=== PATIENT | male | born 1995 | race Caucasian/White ===

== ENCOUNTER 2017-01-17 19:59 | Emergency (ER) | payer BC ==
[~2017-01-17] VITALS: Ht 177.8 cm; Wt 79.1 kg
[2017-01-17 21:16] VITALS: TEMP 36.8; Ht 177.8 cm; Wt 79.1 kg
--- NOTE | 2017-01-17 22:36 | DIAGNOSTIC IMAGING REPORT ---
L ANKLE MIN 3 VIEWS ROUTINE CLINICAL HISTORY: 21 years-old Male presenting with ankle pain, rolled ankle yesterday. TECHNIQUE: Frontal, mortise, and lateral views of the left ankle were obtained. COMPARISON: None. FINDINGS: Ankle mortise intact. No acute fracture or malalignment. Severe soft tissue swelling over the lateral malleolus and to a lesser degree inferior to the medial malleolus. No degenerative change. No radiopaque foreign body. IMPRESSION: No acute osseous injury of the left ankle. Extensive soft tissue swelling most pronounced over the lateral malleolus. Electronically signed by: Fei Lanza M.D. 01/17/2017 10:35 PM Dictated Date/Time: 01/17/2017 10:33 PM
[2017-01-17 23:40] VITALS: BP 150/65; PULSE 70; O2SAT 98
--- NOTE | 2017-01-17 23:50 | EMERGENCY ROOM VISIT NOTE ---
History First contact with patient: 22:05 Chief Complaint: ANKLE PAIN Stated Complaint: SWOLLEN AND BRUISED LT ANKLE History of Present Illness The patient is a 21 year old male who presents to the Emergency Room with complaints of left ankle pain. The patient reports that he twisted his ankle while playing soccer. A medic was on seen and examined the ankle. The patient wanted to see how the ankle did before being evaluated. The patient reports worsening swelling, bruising and pain with weightbearing. He rates his discomfort an 8 out of 10. The patient denies any prior history of left ankle injuries. He also denies any paresthesias or numbness of the left foot or toes. Review of Systems 10 system review was performed and was negative except for pertinent positives and negatives as indicated in history of present illness Past Medical/Surgical History Medical Problems: (1) No significant past medical history Surgical Problems: (1) No history of previous surgery Family History Unremarkable Social History Smoking Status: Never Smoker Alcohol Use: occasionally Marital Status: single Occupation Status: [employer] student Current/Historical Medications No Active Prescriptions or Reported Meds Physical Exam Vital Signs Date Time Temp Pulse Resp B/P (MAP) Pulse Ox O2 Delivery O2 Flow Rate FiO2 01/17/17 23:40 70 18 150/65 98 01/17/17 21:16 36.8 80 20 116/70 100 Room Air Physical Exam CONSTITUTIONAL: Healthy and well nourished. Alert and oriented X 3 with positive affect. HEENT: Normocephalic, atraumatic. Pupils equal, round and reactive. NECK: Full active range of motion without discomfort. MUSCULOSKELETAL: Examination of the left ankle shows notable lateral edema and ecchymosis. Negative anterior draw. No focal tenderness over the dorsal midfoot, calcaneus, metatarsals, phalanges, Achilles tendon or proximal leg. Pedal pulses are intact. INTEGUMENTARY: No rash or other significant dermatologic conditions noted. NEUROLOGIC: No focal neurologic deficits noted. Left foot and toes are sensory intact. Medical Decision & Procedures ER Provider Diagnostic Interpretation: My interpretation of left ankle x-rays does not show any acute fractures, dislocation or ankle mortise asymmetry. Radiologist report is as follows: L ANKLE MIN 3 VIEWS ROUTINE CLINICAL HISTORY: 21 years-old Male presenting with ankle pain, rolled ankle yesterday. TECHNIQUE: Frontal, mortise, and lateral views of the left ankle were obtained. COMPARISON: None. FINDINGS: Ankle mortise intact. No acute fracture or malalignment. Severe soft tissue swelling over the lateral malleolus and to a lesser degree inferior to the medial malleolus. No degenerative change. No radiopaque foreign body. IMPRESSION: No acute osseous injury of the left ankle. Extensive soft tissue swelling most pronounced over the lateral malleolus. ED Course Patient history and physical exam were performed. Nurse's notes were reviewed. Vital signs were reviewed and were normal. The patient refused any analgesics on initial exam. X-rays of the left ankle were normal. The patient was provided crutches, and instructions for ankle sprain care. Ice and elevation for swelling. Ibuprofen and Tylenol in alternating fashion if needed for additional pain relief. Follow-up with orthopedics if symptoms are not improving within the next week. The patient was happy with plan of care, voice understanding of all discharge instructions, and rated his discomfort a 4 out of 10 at the conclusion of my exam. Medical Decision Blood Pressure Screening Patient's blood pressure: Normal blood pressure Impression Primary Impression: Left ankle sprain Departure Information Prescriptions No Active Prescriptions or Reported Meds Referrals No Doctor, Assigned (PCP) Patient Instructions [facility] Problem Qualifiers Primary Impression: Left ankle sprain Encounter type: initial encounter Involved ligament of ankle: unspecified ligament Qualified Codes: S93.402A - Sprain of unspecified ligament of left ankle, initial encounter
== END 2017-01-17 23:41 | disposition home or self-care (01) ==
LOC: EDBD 20:01 → C.EDB 20:01 → C.EDD 23:41
DX: S93.402A Sprain of unspecified ligament of left ankle, initial encounter (principal); X50.9XXA Other and unspecified overexertion or strenuous movements or postures, initial encounter